=== PATIENT | male | born 1955 | race Hispanic/Latino ===

== ENCOUNTER 2019-02-25 10:13 | Inpatient (IN) | payer SELFPAY ==
[~2019-02-25] VITALS: Ht 170.2 cm; Wt 84.3 kg
[2019-02-25] MEDS ORDERED: ONDANSETRON HCL 4 MG/2 ML VIAL ONE (10:37)
[2019-02-25] MEDS ORDERED: MORPHINE SULFATE 4 MG/1ML SYG ONE (10:38)
[2019-02-25 10:42] LABS: BASOPHILS % (AUTO) 0.5 % (0.0-5.0); EOSINOPHILS % (AUTO) 0.4 % (0.0-8.0); HEMATOCRIT 38.9 % (42-54); LYMPHOCYTES % (AUTO) 7.4 % (21.0-51.0); MEAN CORPUSCULAR HEMOGLOBIN 28.4 pg (27.0-33.0); MEAN CORPUSCULAR HGB CONC 33.5 g/dL (32.0-36.0); MEAN CORPUSCULAR VOLUME 84.7 fL (79-99); MONOCYTES % (AUTO) 3.7 % (3.0-13.0); PLATELET COUNT (AUTO) 318 K/uL (130-400); RED BLOOD CELL COUNT(AUTO) 4.59 MIL/uL (4.50-6.20); RED CELL DISTRIBUTION WIDTH 14.5 % (11.0-15.5)
[2019-02-25 11:03] LABS: CREATININE 1.2 mg/dL (0.5-1.5)
[2019-02-25 11:06] LABS: APPEARANCE,URINE Clear (CLEAR); BILIRUBIN,URINE Negative (NEGATIVE); COLOR,URINE Yellow (YELLOW); GLUCOSE, URINE (UA) Negative (NEGATIVE); KETONES,URINE Negative (NEGATIVE); LEUKOCYTE ESTERASE ,URINE Negative (NEGATIVE); NITRATE,URINE Negative (NEGATIVE); OCCULT BLOOD,URINE Negative (NEGATIVE); PROTEIN,URINE Negative (NEGATIVE)
[2019-02-25 11:08] LABS: ALBUMIN 3.8 g/dL (3.5-5.0); TOTAL PROTEIN, SERUM 8.3 g/dL (6.0-8.3)
[2019-02-25] MEDS ORDERED: ZOSYN 3.375GM+NS 50ML 50 ML IV ONE (11:49)
[2019-02-25] MEDS ORDERED: KETOROLAC TROMETHAMINE 30MG/ML ONE (11:49)
[2019-02-25] MEDS ORDERED: SODIUM CHLORIDE 0.9% 1000ML 1,000 ML IV ONE (11:50)
[2019-02-25] MEDS ORDERED: SODIUM CHLORIDE 0.9% 1000ML 1,000 ML IV SCH (12:09)
[2019-02-25] MEDS ORDERED: ONDANSETRON HCL 4 MG/2 ML VIAL IV PRN (12:15)
[2019-02-25] MEDS ORDERED: ACETAMINOPHEN 325 MG TAB PO PRN (12:15)
[2019-02-25] MEDS: DEXTROSE 5 % AND 0.9 % NACL 1,000 ML IV SCH (13:00)
[2019-02-25 14:35] VITALS: BP 150/71
[2019-02-25] MEDS ORDERED: KETOROLAC TROMETHAMINE 15MG/ML IV PRN (16:00)
[2019-02-25] MEDS: MORPHINE SULFATE 2 MG/ML 1ML SYG IV PRN (16:33)
[2019-02-25] MEDS ORDERED: ALLO100T PO (17:32)
[2019-02-25] MEDS ORDERED: ATOR20TA65 PO (17:32)
[2019-02-25] MEDS ORDERED: TAMS-1 PO (17:32)
[2019-02-25] MEDS ORDERED: DUTA0.5C17 PO (17:32)
[2019-02-25] MEDS ORDERED: LISI1TAB29 PO (17:32)
[2019-02-25 19:22] VITALS: BP 126/74
[2019-02-25] MEDS: ZOSYN 3.375GM+NS 50ML 50 ML IV SCH (21:18)
[2019-02-25] MEDS: FAMOTIDINE/PF 20 MG/2 ML VIAL IV SCH (21:18)
[2019-02-26] VITALS (8 sets, daily range): BP systolic 94–155; BP diastolic 58–88
--- NOTE | 2019-02-26 00:30 | NUR ---
temp: 101.6 Informed on-call hospitalist ( MARY Ferreira) with the ff: orders: 1. Tylenol 650 mg supp now 2. Blood culture now 3. Lactic Acid now.
[2019-02-26] MEDS ORDERED: ACETAMINOPHEN 650 MG SUPPOSITORY RC SCH (00:45)
[2019-02-26] MEDS ORDERED: ACETAMINOPHEN 650 MG SUPPOSITORY RC ONE (00:55)
[2019-02-26] MEDS: DEXTROSE 5 % AND 0.9 % NACL 1,000 ML IV SCH ×2 (04:10→14:18)
[2019-02-26 05:49] LABS: MEAN CORPUSCULAR HEMOGLOBIN 27.9 pg (27.0-33.0); MEAN CORPUSCULAR HGB CONC 33.1 g/dL (32.0-36.0); MEAN CORPUSCULAR VOLUME 84.4 fL (79-99); PLATELET COUNT (AUTO) 312 K/uL (130-400); RED BLOOD CELL COUNT(AUTO) 4.15 MIL/uL (4.50-6.20); RED CELL DISTRIBUTION WIDTH 14.2 % (11.0-15.5); WHITE BLOOD COUNT (AUTO) 13.9 K/uL (4.8-10.8)
[2019-02-26 06:10] LABS: ALBUMIN 3.1 g/dL (3.5-5.0); CREATININE 1.7 mg/dL (0.5-1.5); POTASSIUM 4.2 mmol/L (3.5-5.1); TOTAL PROTEIN, SERUM 7.3 g/dL (6.0-8.3)
[2019-02-26 08:24] LABS: LYMPHOCYTES % (MANUAL) 4 % (22-44); MONOCYTES % (MANUAL) 6 % (2-9); SEGMENTED NEUTROPHILS % 90 % (40-70)
[2019-02-26 08:25] LABS: MAN.DIFF COMMENT-IMPRESSION MANUAL DIFFERENTIAL; PLATELET MORPHOLOGY COMMENT ADEQUATE
[2019-02-26] MEDS ORDERED: ENOXAPARIN SODIUM 30 MG/0.3 ML SQ SCH (09:00)
[2019-02-26] MEDS: ZOSYN 3.375GM+NS 50ML 50 ML IV SCH ×2 (09:17→19:53)
[2019-02-26] MEDS: FAMOTIDINE/PF 20 MG/2 ML VIAL IV SCH ×2 (09:17→19:53)
[2019-02-26] MEDS: ENOXAPARIN SODIUM 30 MG/0.3 ML SQ SCH (09:18)
[2019-02-26 11:33] LABS: AMYLASE 72 U/L (25-115); BILIRUBIN,DIRECT 2.3 mg/dL (0.0-0.3); BILIRUBIN,TOTAL 3.4 mg/dL (0.2-1.0); CREATINE KINASE, TOTAL 28 U/L (21-232); LIPASE 126 U/L (114-286)
[2019-02-26 11:34] LABS: GAMMA GLUTAMYL TRANSFERASE 655 U/L (5-85)
--- NOTE | 2019-02-26 11:46 | NUR ---
DCP CM met with pt discussed dc plans. Pt is independent prior to admission, lives at home with spouse. Denies any equipments/services. Feels safe to go back home, still drives and works, arranges own needs, spouse able to assist with transportation as necessary. DC plan to home once stable. CM to cont to follow up. Addendum: 02/26/19 at 1147 by DEZ MUIR LVN CM Amended: Links added.
[2019-02-26 12:25] LABS: AMPHET/METH SCREEN,URINE NEGATIVE (NEGATIVE); BARBITURATE SCREEN, URINE NEGATIVE (NEGATIVE); BENZODIAZEPINES SCREEN,URINE NEGATIVE (NEGATIVE); CANNABINOID SCREEN,URINE NEGATIVE (NEGATIVE); COCAINE SCREEN,URINE NEGATIVE (NEGATIVE); OPIATE SCREEN,URINE NEGATIVE (NEGATIVE); PHENCYCLIDINE SCREEN,URINE NEGATIVE (NEGATIVE)
[2019-02-26 18:55] LABS: ALBUMIN 2.9 g/dL (3.5-5.0); BILIRUBIN,TOTAL 2.7 mg/dL (0.2-1.0); CREATININE 1.3 mg/dL (0.5-1.5); POTASSIUM 3.5 mmol/L (3.5-5.1); TOTAL PROTEIN, SERUM 6.9 g/dL (6.0-8.3)
[2019-02-26] MEDS: MORPHINE SULFATE 2 MG/ML 1ML SYG IV PRN (20:46)
[2019-02-27] VITALS (19 sets, daily range): BP systolic 104–143; BP diastolic 57–83
[2019-02-27] MEDS: DEXTROSE 5 % AND 0.9 % NACL 1,000 ML IV SCH ×2 (04:47→14:41)
[2019-02-27 06:06] LABS: BASOPHILS % (AUTO) 0.1 % (0.0-5.0); EOSINOPHILS % (AUTO) 0.1 % (0.0-8.0); HEMATOCRIT 32.3 % (42-54); LYMPHOCYTES % (AUTO) 5.3 % (21.0-51.0); MEAN CORPUSCULAR HEMOGLOBIN 27.6 pg (27.0-33.0); MEAN CORPUSCULAR HGB CONC 32.5 g/dL (32.0-36.0); MONOCYTES % (AUTO) 8.2 % (3.0-13.0); NEUTROPHILS % (AUTO) 86.1 % (40.0-77.0); PLATELET COUNT (AUTO) 228 K/uL (130-400); RED CELL DISTRIBUTION WIDTH 13.7 % (11.0-15.5); WHITE BLOOD COUNT (AUTO) 8.1 K/uL (4.8-10.8)
[2019-02-27 06:27] LABS: ALBUMIN 2.8 g/dL (3.5-5.0); BILIRUBIN,TOTAL 2.6 mg/dL (0.2-1.0); CREATININE 1.2 mg/dL (0.5-1.5); POTASSIUM 3.2 mmol/L (3.5-5.1); TOTAL PROTEIN, SERUM 6.7 g/dL (6.0-8.3)
[2019-02-27 08:12] LABS: HEPATITIS A ANTIBODY IGM Negative (Negative); HEPATITIS B CORE IGM Negative (Negative); HEPATITIS Bs ANTIGEN SCREEN P Negative (Negative)
[2019-02-27] MEDS: ENOXAPARIN SODIUM 30 MG/0.3 ML SQ SCH (08:23)
[2019-02-27] MEDS ORDERED: POTASSIUM CHLORIDE 10% ELIXIR 20 MEQ/15 ML UDCUP PO PRN (08:30)
[2019-02-27] MEDS ORDERED: POTASSIUM CHLORIDE 20MEQ/100ML 100 ML IV PRN ×2 (08:30)
[2019-02-27] MEDS ORDERED: POTASSIUM CHLORIDE 20 MEQ ERTAB PO PRN (08:30)
[2019-02-27] MEDS ORDERED: LIDOCAINE HCL-MPF 1% 2ML VIAL IV PRN ×2 (08:30)
[2019-02-27] MEDS ORDERED: POTASSIUM CHLORIDE 20MEQ/100ML 100 ML IV ONE (08:35)
[2019-02-27] MEDS: FAMOTIDINE/PF 20 MG/2 ML VIAL IV SCH ×2 (08:37→20:55)
[2019-02-27] MEDS: ZOSYN 3.375GM+NS 50ML 50 ML IV SCH ×2 (11:37→20:56)
[2019-02-27] MEDS ORDERED: IOHEXOL-350 50ML VIAL IV ONE (11:59)
[2019-02-27] MEDS ORDERED: INDOMETHACIN 50 MG SUPP.RECT RC SCH (12:00)
[2019-02-27] MEDS ORDERED: FENTANYL CITRATE PF 50 MCG/1 ML 2ML VIAL ONE (12:40)
[2019-02-27] MEDS ORDERED: SUCCINYLCHOLINE 200MG/10ML SYR ONE (12:40)
[2019-02-27] MEDS ORDERED: MIDAZOLAM HCL 1 MG/ML 2ML VIAL ONE (12:40)
[2019-02-27] MEDS ORDERED: PROPOFOL 10 MG/ML 20ML VIAL IV ONE (12:40)
[2019-02-27] MEDS: TAMSULOSIN HCL 0.4 MG CAP.ER.24H PO SCH (20:56)
[2019-02-28] VITALS (26 sets, daily range): BP systolic 45–159; BP diastolic 58–80
[2019-02-28] MEDS: DEXTROSE 5 % AND 0.9 % NACL 1,000 ML IV SCH ×2 (05:09→20:01)
[2019-02-28 06:13] LABS: BASOPHILS % (AUTO) 0.2 % (0.0-5.0); EOSINOPHILS % (AUTO) 0.5 % (0.0-8.0); HEMATOCRIT 31.2 % (42-54); LYMPHOCYTES % (AUTO) 12.1 % (21.0-51.0); MEAN CORPUSCULAR HEMOGLOBIN 27.5 pg (27.0-33.0); MEAN CORPUSCULAR HGB CONC 32.1 g/dL (32.0-36.0); MONOCYTES % (AUTO) 8.9 % (3.0-13.0); PLATELET COUNT (AUTO) 219 K/uL (130-400); RED BLOOD CELL COUNT(AUTO) 3.63 MIL/uL (4.50-6.20); RED CELL DISTRIBUTION WIDTH 13.7 % (11.0-15.5); WHITE BLOOD COUNT (AUTO) 6.2 K/uL (4.8-10.8)
[2019-02-28 06:29] LABS: ALBUMIN 2.6 g/dL (3.5-5.0); BILIRUBIN,DIRECT 0.4 mg/dL (0.0-0.3); BILIRUBIN,TOTAL 0.9 mg/dL (0.2-1.0); CREATININE 1.1 mg/dL (0.5-1.5); POTASSIUM 3.7 mmol/L (3.5-5.1); TOTAL PROTEIN, SERUM 6.6 g/dL (6.0-8.3)
[2019-02-28] MEDS: ENOXAPARIN SODIUM 30 MG/0.3 ML SQ SCH (09:00)
[2019-02-28] MEDS: FAMOTIDINE/PF 20 MG/2 ML VIAL IV SCH ×2 (09:00→20:00)
[2019-02-28] MEDS ORDERED: BUPIVACAINE/PF 0.5% 30ML VIAL ONE (11:27)
[2019-02-28] MEDS ORDERED: LACTATED RINGERS 1000ML 1,000 ML IV ONE (11:38)
[2019-02-28] MEDS: ZOSYN 3.375GM+NS 50ML 50 ML IV SCH ×2 (11:47→20:44)
[2019-02-28] MEDS ORDERED: PROPOFOL 10 MG/ML 20ML VIAL IV ONE (12:00)
[2019-02-28] MEDS ORDERED: FENTANYL CITRATE PF 50 MCG/1 ML 2ML VIAL ONE (12:00)
[2019-02-28] MEDS ORDERED: ROCURONIUM 10MG/1ML SYR 10 MG/ML ML ONE (12:00)
[2019-02-28] MEDS ORDERED: SUCCINYLCHOLINE 200MG/10ML SYR ONE (12:00)
[2019-02-28] MEDS ORDERED: LIDOCAINE PF 2% 5ML ABBOJECT ONE (12:00)
[2019-02-28] MEDS ORDERED: ONDANSETRON HCL 4 MG/2 ML VIAL ONE (13:41)
[2019-02-28] MEDS ORDERED: GLYCOPYRROLATE 1 MG/5 ML SYRINGE ONE (13:41)
[2019-02-28] MEDS ORDERED: NEOSTIGMINE 5MG/5ML SYR IV ONE (13:41)
[2019-02-28] MEDS ORDERED: MEPERIDINE-PF 25 MG/ML SYG ONE ×3 (13:54→14:30)
[2019-02-28] MEDS: MORPHINE SULFATE 2 MG/ML 1ML SYG IV PRN (16:22)
[2019-02-28] MEDS: TAMSULOSIN HCL 0.4 MG CAP.ER.24H PO SCH (20:00)
[2019-02-28] MEDS: MORPHINE SULFATE 2 MG/ML 1ML SYG IM PRN (20:45)
[2019-02-28] MEDS ORDERED: TRAMADOL HCL 50 MG TABLET PO PRN (21:15)
[2019-03-01] MEDS: MORPHINE SULFATE 2 MG/ML 1ML SYG IM PRN ×2 (01:48→07:08)
[2019-03-01 03:59] VITALS: BP 159/85
[2019-03-01] MEDS: ZOSYN 3.375GM+NS 50ML 50 ML IV SCH ×2 (04:27→19:58)
[2019-03-01 07:00] VITALS: BP 145/81
[2019-03-01] MEDS ORDERED: MORPHINE SULFATE 2 MG/ML 1ML SYG IVP PRN (07:45)
[2019-03-01] MEDS: FAMOTIDINE/PF 20 MG/2 ML VIAL IV SCH ×2 (09:19→19:57)
[2019-03-01] MEDS: ENOXAPARIN SODIUM 30 MG/0.3 ML SQ SCH (09:19)
[2019-03-01] MEDS: MORPHINE SULFATE 2 MG/ML 1ML SYG IVP PRN ×2 (09:25→14:17)
[2019-03-01 11:00] VITALS: BP 153/94
[2019-03-01 12:09] LABS: HEMATOCRIT 29.2 % (42-54); MEAN CORPUSCULAR HEMOGLOBIN 27.4 pg (27.0-33.0); MEAN CORPUSCULAR HGB CONC 31.8 g/dL (32.0-36.0); MEAN CORPUSCULAR VOLUME 86.1 fL (79-99); PLATELET COUNT (AUTO) 220 K/uL (130-400); RED BLOOD CELL COUNT(AUTO) 3.39 MIL/uL (4.50-6.20); RED CELL DISTRIBUTION WIDTH 13.9 % (11.0-15.5); WHITE BLOOD COUNT (AUTO) 11.7 K/uL (4.8-10.8)
[2019-03-01 12:24] LABS: ALBUMIN 2.4 g/dL (3.5-5.0); BILIRUBIN,DIRECT 0.3 mg/dL (0.0-0.3); BILIRUBIN,TOTAL 0.8 mg/dL (0.2-1.0); TOTAL PROTEIN, SERUM 6.2 g/dL (6.0-8.3)
[2019-03-01 13:08] LABS: BAND NEUTROPHILS % (MANUAL) 1 % (0-2); LYMPHOCYTES % (MANUAL) 7 % (22-44); MAN.DIFF COMMENT-IMPRESSION MANUAL DIFFERENTIAL; MONOCYTES % (MANUAL) 5 % (2-9); PLATELET MORPHOLOGY COMMENT ADEQUATE; SEGMENTED NEUTROPHILS % 87 % (40-70)
[2019-03-01] MEDS ORDERED: KETOROLAC TROMETHAMINE 30MG/ML IV PRN (14:15)
--- NOTE | 2019-03-01 14:23 | NUR ---
dr jerry signed off and in her stand point patient ready to be discharge and to follow up with her in one week.
[2019-03-01 16:00] VITALS: BP 143/76
--- NOTE | 2019-03-01 16:08 | NUR ---
High fiber diet therapy: Provided pt with printed materials on High fiber diet therapy. Pt is s/p open cholecystectomy. Encouraged to reduce fat intake and increase high fiber intake. Pt and with multiple nutritional questions, all questions answered by MICHAELA. Please consult MICHAELA as nutrition concerns arise. Addendum: 03/01/19 at [address] RD Amended: Links added.
--- NOTE | 2019-03-01 16:13 | NUR ---
Nutrition intervention: Nutrition notification for LOS x4. Pt admitted for acute cholecystitis. Pt is s/p cholecystectomy. High fiber Diet education provided. Spoke to pt about low fat diet. Pt verbalized understanding. recommendation: modify diet therapy to low fat diet. Monitor I/O. Consult RD as nutrition concerns arise. Addendum: 03/01/19 at [address] RD Amended: Links added.
[2019-03-01] MEDS: DEXTROSE 5 % AND 0.9 % NACL 1,000 ML IV SCH (17:24)
[2019-03-01] MEDS: METRONIDAZOLE 500MG/100ML BAG 100 ML IV SCH ×2 (17:24→19:58)
[2019-03-01 19:10] VITALS: BP 159/83
[2019-03-01] MEDS: TAMSULOSIN HCL 0.4 MG CAP.ER.24H PO SCH (19:57)
[2019-03-02 00:22] VITALS: BP 148/79
[2019-03-02 04:24] VITALS: BP 149/76
[2019-03-02 04:25] VITALS: BP 151/80
[2019-03-02] MEDS: DEXTROSE 5 % AND 0.9 % NACL 1,000 ML IV SCH (04:31)
[2019-03-02] MEDS: ZOSYN 3.375GM+NS 50ML 50 ML IV SCH (04:31)
[2019-03-02] MEDS: METRONIDAZOLE 500MG/100ML BAG 100 ML IV SCH (04:31)
[2019-03-02 05:32] LABS: HEMATOCRIT 27.7 % (42-54); MEAN CORPUSCULAR HEMOGLOBIN 28.2 pg (27.0-33.0); MEAN CORPUSCULAR HGB CONC 33.2 g/dL (32.0-36.0); PLATELET COUNT (AUTO) 228 K/uL (130-400); RED BLOOD CELL COUNT(AUTO) 3.26 MIL/uL (4.50-6.20); RED CELL DISTRIBUTION WIDTH 13.9 % (11.0-15.5); WHITE BLOOD COUNT (AUTO) 11.8 K/uL (4.8-10.8)
[2019-03-02 05:48] LABS: ALBUMIN 2.2 g/dL (3.5-5.0); BILIRUBIN,TOTAL 0.6 mg/dL (0.2-1.0); POTASSIUM 3.1 mmol/L (3.5-5.1); TOTAL PROTEIN, SERUM 6.2 g/dL (6.0-8.3)
[2019-03-02 08:00] VITALS: BP 154/81
[2019-03-02] MEDS: ENOXAPARIN SODIUM 30 MG/0.3 ML SQ SCH (09:41)
[2019-03-02] MEDS: FAMOTIDINE/PF 20 MG/2 ML VIAL IV SCH (09:41)
[2019-03-02 12:00] VITALS: BP 153/81
[2019-03-02] MEDS ORDERED: ACET1TAB12 PO (13:36)
[2019-03-02] MEDS ORDERED: KETO10TA2 PO (13:36)
[2019-03-02 16:00] VITALS: BP 150/72
== END 2019-03-02 13:08 | disposition home or self-care (01) | DRG 416 ==
LOC: EDH 10:13 → EDHIP 10:14 → 3CH 14:23
PROVIDERS: ADMIT Internal Medicine; ATTEND Internal Medicine
PROC: 0FC98ZZ Extirpation of Matter from Common Bile Duct, Via Natural or Artificial Opening Endoscopic (ICD-10-PCS; 2019-02-27)
PROC: BF101ZZ Fluoroscopy of Bile Ducts using Low Osmolar Contrast (ICD-10-PCS; 2019-02-27)
PROC: 0FJ44ZZ Inspection of Gallbladder, Percutaneous Endoscopic Approach (ICD-10-PCS; principal; 2019-02-28 12:15)
PROC: 0FT40ZZ Resection of Gallbladder, Open Approach (ICD-10-PCS; 2019-02-28 12:15)
DX: K80.63 Calculus of gallbladder and bile duct with acute cholecystitis with obstruction (principal); K82.8 Other specified diseases of gallbladder; I10 Essential (primary) hypertension; K75.89 Other specified inflammatory liver diseases; N40.0 Benign prostatic hyperplasia without lower urinary tract symptoms; D72.825 Bandemia; E78.5 Hyperlipidemia, unspecified; K76.0 Fatty (change of) liver, not elsewhere classified; K82.A1 Gangrene of gallbladder in cholecystitis; M10.9 Gout, unspecified; Z53.31 Laparoscopic surgical procedure converted to open procedure
CPT/HCPCS: 36415; 43262; 43264; 71045; 74181; 74328; 74330; 76705; 78227; 80048; 80053; 80074; 80076; 80305; 81003; 82150; 82247; 82248; 82550; 82977; 83605; 83690; 83735; 84484; 85025; 85027; 86701; 86850; 86900; 86901; 87040; 87070; 87076; 87077; 87186; 87205; 87390; 93005; A4606; A9537; C1769; C1773; G0378; J0330; J1650; J1885; J2001; J2175; J2250; J2270; J2405; J2543; J2704; J2710; J3010; J3480; J3490; J7030; J7042; J7120; Q9967

== ENCOUNTER → 2022-03-16 | Outpatient (CLI) | payer MEDICARE ==
[~2022-03-16] MED LIST: ACET1TAB12 PO; ALLO100T PO; ATOR20TA65 PO; DUTA0.5C37 PO; KETO10TA2 PO; LISI1TAB53 PO; TAMS-1 PO
== END | disposition home or self-care (01) ==
LOC: SHCH 13:53
PROVIDERS: ATTEND Internal Medicine Cardiovascular Disease
DX: I35.8 Other nonrheumatic aortic valve disorders (principal); I11.9 Hypertensive heart disease without heart failure; I65.21 Occlusion and stenosis of right carotid artery; E78.5 Hyperlipidemia, unspecified
CPT/HCPCS: 93306